=== PATIENT | female | born 1955 | race Caucasian/White ===

== ENCOUNTER 2016-12-02 05:10 | Emergency (ER) | payer OTHER ==
[~2016-12-02] VITALS: Ht 162.6 cm; Wt 78.6 kg
[~2016-12-02 05:10] MED LIST: BENADRYL50 MG PO; CORTEF10 MG PO; CORTEF20 M1 PO; ELIQUIS5 MG PO; FISH OIL500 MG PO; FLORINEF ACETA0.1 MG PO; LEVOTHROID100 MCG PO; TEGRETOL200 MG PO; VITAMIN B12-FO1 EACH SL
[2016-12-02 06:25] LABS: HEMATOCRIT 37.4 % (36.0-46.0); MCH 33.9 PG (29.0-34.0); MCV 96.6 FL (83-99); MEAN PLAT.VOLUME 9.1 uM^3 (9.5-12.4); NRBC (%) 0.3 /100 WBC (0-0); PLATELET COUNT 134 K/uL (156-360); RBC DIS.WIDTH-CV 12.4 % (11.8-14.6); RBC DIS.WIDTH-SD 43.4 % (39-53); RED BLOOD COUNT 3.87 M/uL (3.80-5.20); WHITE BLOOD COUNT 5.9 K/uL (4.1-10.2)
[2016-12-02 06:33] LABS: CHLORIDE 104 mEq/L (99-109); POTASSIUM 3.5 mEq/L (3.7-5.4); SODIUM 135 mEq/L (136-147)
[2016-12-02 06:35] LABS: GLUCOSE 92 mg/dL (70-99)
[2016-12-02 06:36] LABS: ANION GAP 12 MEQ/L (2-14)
[2016-12-02 06:37] LABS: TOTAL BILIRUBIN 0.5 mg/dL (0.0-1.0)
[2016-12-02 06:39] LABS: ALKALINE PHOSPHATASE 103 IU/L (3-129); GFR ESTIMATE (CALCULATED) > 59 mL/min/
[2016-12-02 06:40] LABS: UREA NITROGEN (BUN) 22 mg/dL (9-23)
[2016-12-02 06:42] LABS: LIPASE 18 U/L (1.0-51.0)
[2016-12-02 06:46] LABS: TROP-I INTERPRETATION NEGATIVE; TROPONIN-I < 0.01 ng/mL (0.0-0.30)
[2016-12-02 07:46] LABS: INFLUENZA A VIRAL ANTIGEN POSITIVE; INFLUENZA B VIRAL ANTIGEN NEGATIVE
[2016-12-02] MEDS ORDERED: ZOFRAN ODT4 MG PO (09:37)
[2016-12-02] MEDS ORDERED: TAMIFLU75 MG PO (09:37)
[2016-12-02 10:21] VITALS: BP 120/65
== END 2016-12-02 10:22 | disposition home or self-care (01) ==
LOC: EME → EDBD 05:10 → EME 05:10
PROVIDERS: Emergency Medicine
DX: J10.1 Influenza due to other identified influenza virus with other respiratory manifestations (principal); R65.10 Systemic inflammatory response syndrome (SIRS) of non-infectious origin without acute organ dysfunction; B34.9 Viral infection, unspecified; R41.0 Disorientation, unspecified; E27.1 Primary adrenocortical insufficiency; Z86.73 Personal history of transient ischemic attack (TIA), and cerebral infarction without residual deficits; E03.9 Hypothyroidism, unspecified; Z88.2 Allergy status to sulfonamides; Z88.6 Allergy status to analgesic agent
CPT/HCPCS: 70450; 71020; 74177; 80053; 81003; 83605; 83690; 84484; 85027; 87040; 87502; 93005; 99281; 99285; J0696; J2405; J2930; J7030; J7050